=== PATIENT | female | born 1960 | race Caucasian/White ===

== ENCOUNTER → 2017-07-01 | Outpatient (CLI) | payer OTHER ==
[~2017-07-01] MED LIST: ISOVUE-370 76% 100ML VIAL (Q9967) As Ordered
== END ==
LOC: M RAD 10:20
DX: D35.02 Benign neoplasm of left adrenal gland (principal)
CPT/HCPCS: Q9967

== ENCOUNTER → 2017-10-07 | Outpatient (CLI) | payer OTHER | LOC: M LRY 12:27 | DX: R10.12 Left upper quadrant pain (principal) | CPT/HCPCS: 74018; 81002 ==

== ENCOUNTER → 2018-04-14 | Outpatient (CLI) | payer OTHER ==
--- NOTE | 2018-04-14 11:32 | REP ---
Right foot four views: There are calcaneal plantar and Achilles spurs. Mineralization and joint spaces are normal. There is no fracture or dislocation. There are no calcifications or foreign bodies. Impression: Calcaneal plantar and Achilles spurs. Electronically Signed by Melecio Solano MD 04/14/2018 11:24 A
== END ==
LOC: M LRY 10:54
PROVIDERS: ATTEND Physician Assistant
DX: M79.671 Pain in right foot (principal); M77.31 Calcaneal spur, right foot

== ENCOUNTER → 2018-09-13 | Outpatient (CLI) | payer OTHER ==
[~2018-09-13] MED LIST changes: -ISOVUE-370 76% 100ML VIAL (Q9967) As Ordered; +ISOVUE-370 76% 100ML VIAL (Q9967) As Ordered ONE
--- NOTE | 2018-09-13 12:49 | REP ---
CT of the abdomen, pelvis not included, without and with IV contrast for follow-up of adrenal nodule: Comparison is 07/01/2017. The patient has a known 2.5 cm left adrenal nodule. On the study today the adrenal nodule is again identified and measures 2.5 cm. Without IV contrast the CT density of the nodule is -1.88 HU. This is compatible with benign adenoma and is unchanged from the prior study. Left adrenal is unchanged and unremarkable. The visualized lower lung vasques are unremarkable. The hepatic parenchyma is homogeneous. There are surgical clips in the gallbladder fossa. The pancreas, spleen, kidneys and abdominal aorta are unremarkable. The visualized bowel loops and mesentery are unremarkable. Impression: The known left adrenal nodule demonstrates no size increase. The CT density of the adrenal nodules compatible with benign adenoma. Findings are unchanged from the prior study. Electronically Signed by Melecio Solano MD 09/13/2018 12:40 P
== END ==
LOC: M RAD 09:37
PROVIDERS: ATTEND Nurse Practitioner Women's Health
DX: D35.02 Benign neoplasm of left adrenal gland (principal)

== ENCOUNTER → 2019-11-07 | Outpatient (CLI) | payer OTHER ==
[~2019-11-07] MED LIST changes: -ISOVUE-370 76% 100ML VIAL (Q9967) As Ordered ONE; +ISOVUE-370 76% 100ML VIAL As Ordered ONE
--- NOTE | 2019-11-28 07:08 | REP ---
PRE- AND POSTCONTRAST CT ABDOMEN CLINICAL: Follow-up adrenal lesion. COMPARISON: 09/13/2018, 07/01/2017. TECHNIQUE: Axial precontrast, contrast enhanced, and 15-minute delayed images of the abdomen obtained using 100 mL Isovue-370 intravenous contrast material with coronal and sagittal reformation. FINDINGS: A 2.4 cm left adrenal lesion demonstrates low density on precontrast images, as well as satisfactory washout on delayed imaging, consistent with stable benign adrenal adenoma unchanged in size and measuring 2.4 cm in maximal diameter. Liver demonstrates diffuse fatty infiltration without focal hepatic lesion. Spleen, pancreas, right adrenal gland, and bilateral kidneys are normal. Evidence for prior cholecystectomy. The enteric system is without obstruction. Diverticulosis noted without acute diverticulitis. No ascites. No free air. No adenopathy. Abdominal aorta demonstrates atherosclerotic changes without aneurysm. Surrounding musculoskeletal structures are intact. Lung bases are clear. IMPRESSION: * Stable left adrenal benign adenoma. No change through 2018. * Hepatosteatosis. * Diverticulosis without acute diverticulitis. MTDD
== END ==
LOC: M RAD 10:25
PROVIDERS: ATTEND Nurse Practitioner Women's Health
DX: D35.02 Benign neoplasm of left adrenal gland (principal); K76.0 Fatty (change of) liver, not elsewhere classified; K57.92 Diverticulitis of intestine, part unspecified, without perforation or abscess without bleeding
CPT/HCPCS: 74170; Q9967

== ENCOUNTER → 2020-01-08 | Outpatient (CLI) | payer OTHER ==
--- NOTE | 2020-01-08 11:18 | PFTRPT ---
Height: 65.00 Inches Weight: 233.00 Lbs BSA: 2.11 Diagnosis: GAINES DATE: 01/08/2020 ORDERING PHYSICIAN: Dr. Hussain Mccall Pre and post bronchodilator studies have excellent technical quality. Forced vital capacity is reduced. FEV1 is out of proportion, obstructive index is therefore reduced. Expiratory limit within the flow-volume loop is consistent with flow rate limitation. No significant bronchodilator response is identified. Total lung capacity is normal. Residual volume is consistent with air trapping. Diffusing capacity although reduced is appropriate for alveolar volume but no hemoglobin is available for correction. Airway resistance and conductance are normal. IMPRESSION: At least mild obstructive ventilatory impairment with underlying air trapping. No bronchodilator response. Please correlate clinically. MTDD
--- NOTE | 2020-01-09 08:31 | REP ---
INDICATION: PT W/ 40+ PPY SMOKING HISTORY PT HAS PFT AFTER CT COMPARISON: None. TECHNIQUE: Axial noncontrast images from the thoracic inlet to the upper abdomen using low-dose lung screening technique (LDCT). FINDINGS: There is an 8 mm part solid nodule in the lingula (image 61). No further consolidation, suspicious nodule or mass lesion identified. IMPRESSION: Lung-RADS category 3 with 8 mm part solid nodule at the lingula. Management recommendations include 6 month low-dose CT re-evaluation. <Electronically signed by Akin Alston > 01/09/20 [id number]
== END ==
LOC: M CARPUL 09:58
PROVIDERS: ATTEND Emergency Medicine
DX: Z13.89 Encounter for screening for other disorder (principal); R06.02 Shortness of breath; Z87.891 Personal history of nicotine dependence
CPT/HCPCS: 94060; 94726; 94729; G0297

== ENCOUNTER → 2020-09-04 | Outpatient (CLI) | payer OTHER ==
--- NOTE | 2020-09-04 10:52 | REP ---
INDICATION: LUNG NODULE F/U. COMPARISON: 01/08/2020 a low-dose screening CT examination. TECHNIQUE: Axial noncontrast images from the thoracic inlet to the upper abdomen using low-dose lung screening technique (LDCT). As per the protocol only lung window images were sent to the read station for interpretation. FINDINGS: The 8 mm sized ground-glass nodule seen previously in the lingula is stable. No new abnormal nodules, masses, or opacities have developed. Grossly, the mediastinum and pulmonary hussain are stable. Grossly, the imaged upper abdomen and imaged osseous structures are stable. IMPRESSION: Stable CT examination of the chest as described above. According to the revised Fleischner society criteria the lingular nodule represents a category [address] screening is recommended. <Electronically signed by Roland Marquez > 09/04/20 1043
== END ==
LOC: M RAD 09:48
PROVIDERS: ATTEND Student in an Organized Health Care Education/Training Program
DX: R91.1 Solitary pulmonary nodule (principal)

== ENCOUNTER → 2020-10-07 | Outpatient (REF) | payer OTHER ==
[2020-10-09 15:08] LABS: A1A FOR PHENOTYPE 167 mg/dL (101-187)
== END ==
LOC: M LAB REF 13:21
PROVIDERS: ATTEND Internal Medicine Pulmonary Disease
DX: J43.1 Panlobular emphysema (principal)

== ENCOUNTER → 2021-09-10 | Outpatient (CLI) | payer OTHER | LOC: M PLAIMG 13:02 | PROVIDERS: ATTEND Internal Medicine Pulmonary Disease | DX: R91.8 Other nonspecific abnormal finding of lung field (principal) ==

== ENCOUNTER → 2022-04-10 | Outpatient (CLI) | payer OTHER | LOC: M RAD 08:38 | PROVIDERS: ATTEND Nurse Practitioner Women's Health | DX: D35.02 Benign neoplasm of left adrenal gland (principal) ==

== ENCOUNTER → 2022-09-24 | Outpatient (CLI) | payer OTHER | LOC: M RAD 12:55 | PROVIDERS: ATTEND Internal Medicine Pulmonary Disease | DX: R91.8 Other nonspecific abnormal finding of lung field (principal) ==

== ENCOUNTER 2023-07-02 07:49 | Day surgery (SDC) | payer OTHER ==
[~2023-07-02] VITALS: Ht 165.1 cm; Wt 100.2 kg
[~2023-07-02 07:49] MED LIST changes: +ATOR40TA75 PO; +BENA25CA4 PO; +BYDU2INJ7 SC; +CALC-356 PO; +COMB0.2S OU; -ISOVUE-370 76% 100ML VIAL As Ordered ONE; +JARD1TAB PO; +LISI10TA22 PO; +METO1TAB7 PO; +OMEG10002 PO; +OMEP-173 PO; +PROB250C PO; +SPIR1AER PO; +THERTAB52 PO; +XALA0.007 OU; +XARE20TA PO
[2023-07-02] MEDS: NS 1,000 ML IV ONE (08:17)
[2023-07-02] MEDS ORDERED: LIDOCAINE 2% 100MG/5ML SDV (FOR ANES.) As Ordered ONE (09:05)
[2023-07-02] MEDS ORDERED: propofoL 200 MG/20 ML VIAL As Ordered ONE (09:05)
[2023-07-02 10:10] VITALS: BP 138/66; TEMP 97.2; O2SAT 100
== END 2023-07-02 10:50 | disposition home or self-care (01) ==
LOC: M OPP 07:49
PROVIDERS: ATTEND Internal Medicine Gastroenterology
DX: Z12.11 Encounter for screening for malignant neoplasm of colon (principal); Z12.12 Encounter for screening for malignant neoplasm of rectum; D12.3 Benign neoplasm of transverse colon; D12.4 Benign neoplasm of descending colon; D12.2 Benign neoplasm of ascending colon; D12.7 Benign neoplasm of rectosigmoid junction; K57.30 Diverticulosis of large intestine without perforation or abscess without bleeding; K44.9 Diaphragmatic hernia without obstruction or gangrene; K29.70 Gastritis, unspecified, without bleeding; K21.00 Gastro-esophageal reflux disease with esophagitis, without bleeding; R13.10 Dysphagia, unspecified; E11.9 Type 2 diabetes mellitus without complications; J44.9 Chronic obstructive pulmonary disease, unspecified; Z95.0 Presence of cardiac pacemaker; F17.210 Nicotine dependence, cigarettes, uncomplicated; Z79.899 Other long term (current) drug therapy; Z79.01 Long term (current) use of anticoagulants; Z79.84 Long term (current) use of oral hypoglycemic drugs; Z90.710 Acquired absence of both cervix and uterus

== ENCOUNTER → 2024-01-11 | Outpatient (CLI) | payer OTHER | LOC: M RAD 13:35 | PROVIDERS: ATTEND Internal Medicine Pulmonary Disease | DX: Z12.2 Encounter for screening for malignant neoplasm of respiratory organs (principal); Z87.891 Personal history of nicotine dependence ==

== ENCOUNTER 2024-04-12 06:21 | Day surgery (SDC) | payer OTHER ==
[~2024-04-12] VITALS: Ht 165.1 cm; Wt 98.2 kg
[~2024-04-12 06:21] MED LIST changes: +ATOR80TA59 PO; +JARD1TAB3 PO; +PHENYLEPHRINE 10% OPHTH SOL 5ML OS PRN
[2024-04-12] MEDS ORDERED: MIDAZOLAM INJ 2MG/2ML VIAL As Ordered ONE (07:09)
[2024-04-12] MEDS: LIDOCAINE 3.5 % 1ML OPHTH TOPICAL GEL OU ONE (07:09)
[2024-04-12] MEDS: OFLOXACIN 0.3 % (OCUFLOX) OPTH SOL 5ML OS ONE (07:09)
[2024-04-12] MEDS: CYCLOPENTOLATE 1% OPHTH SOLN 2ML BTL OS SCH (07:09)
[2024-04-12] MEDS: PHENYLEPHRINE 2.5% OPHTH SOL 2ML OS SCH (07:10)
[2024-04-12] MEDS: TROPICAMIDE 1% OPHTH SOLN 15ML OS SCH (07:10)
[2024-04-12] MEDS: BSS IRRIG/VANCO(10MG)/TOBRA(5MG)/EPINEPH(1:1000-0.5CC)500ML BAG-ORONLY As Ordered ONE (08:47)
[2024-04-12] MEDS: LIDOCAINE 1% SDV 5ML VIAL As Ordered ONE (08:47)
[2024-04-12] MEDS: CEFUROXIME 1MG/0.1ML INTRACAMERAL INJ As Ordered ONE (08:47)
[2024-04-12] MEDS ORDERED: fentaNYL 100 MCG/2 ML INJECTION As Ordered ONE (08:54)
[2024-04-12 09:02] VITALS: BP 122/65; TEMP 97.6; O2SAT 98
== END 2024-04-12 09:50 | disposition home or self-care (01) ==
LOC: M SDC 06:21
PROVIDERS: ATTEND Ophthalmology
DX: H40.1121 Primary open-angle glaucoma, left eye, mild stage (principal); E11.36 Type 2 diabetes mellitus with diabetic cataract; H25.12 Age-related nuclear cataract, left eye; I48.91 Unspecified atrial fibrillation; I10 Essential (primary) hypertension; J44.9 Chronic obstructive pulmonary disease, unspecified; E78.00 Pure hypercholesterolemia, unspecified; Z95.0 Presence of cardiac pacemaker; Z79.899 Other long term (current) drug therapy; Z79.01 Long term (current) use of anticoagulants; Z79.84 Long term (current) use of oral hypoglycemic drugs; K21.9 Gastro-esophageal reflux disease without esophagitis; Z90.710 Acquired absence of both cervix and uterus; Z90.49 Acquired absence of other specified parts of digestive tract; Z87.891 Personal history of nicotine dependence
CPT/HCPCS: 66991; C1783; J0697; J2250; J3010; V2632

== ENCOUNTER 2024-04-19 06:26 | Day surgery (SDC) | payer OTHER ==
[~2024-04-19] VITALS: Ht 165.1 cm; Wt 98.4 kg
[~2024-04-19 06:26] MED LIST changes: +PHENYLEPHRINE 10% OPHTH SOL 5ML OD PRN; -PHENYLEPHRINE 10% OPHTH SOL 5ML OS PRN
[2024-04-19] MEDS: PHENYLEPHRINE 2.5% OPHTH SOL 2ML OD SCH (06:58)
[2024-04-19] MEDS: CYCLOPENTOLATE 1% OPHTH SOLN 2ML BTL OD SCH (06:58)
[2024-04-19] MEDS: OFLOXACIN 0.3 % (OCUFLOX) OPTH SOL 5ML OD ONE (06:58)
[2024-04-19] MEDS: LIDOCAINE 3.5 % 1ML OPHTH TOPICAL GEL OU ONE (06:58)
[2024-04-19] MEDS: TROPICAMIDE 1% OPHTH SOLN 15ML OD SCH (06:59)
[2024-04-19] MEDS ORDERED: MIDAZOLAM INJ 2MG/2ML VIAL As Ordered ONE (07:17)
[2024-04-19] MEDS ORDERED: fentaNYL 100 MCG/2 ML INJECTION As Ordered ONE (07:17)
[2024-04-19] MEDS: LIDOCAINE 1% SDV 5ML VIAL As Ordered ONE (08:05)
[2024-04-19] MEDS: CEFUROXIME 1MG/0.1ML INTRACAMERAL INJ As Ordered ONE (08:05)
[2024-04-19] MEDS: BSS IRRIG/VANCO(10MG)/TOBRA(5MG)/EPINEPH(1:1000-0.5CC)500ML BAG-ORONLY As Ordered ONE (08:05)
[2024-04-19] MEDS ORDERED: PROVISC 10 MG/ML 0.85ML SYRINGE As Ordered ONE (08:08)
[2024-04-19] MEDS ORDERED: dexmedeTOMIDine (4MCG/ML)200MCG/50ML BTL (PRECEDEX) As Ordered ONE (08:13)
[2024-04-19 08:24] VITALS: BP 179/94; TEMP 97.6; O2SAT 95
== END 2024-04-19 08:42 | disposition home or self-care (01) ==
LOC: M SDC 06:26
PROVIDERS: ATTEND Ophthalmology
DX: H25.11 Age-related nuclear cataract, right eye (principal); H40.1111 Primary open-angle glaucoma, right eye, mild stage; I48.91 Unspecified atrial fibrillation; I10 Essential (primary) hypertension; E78.5 Hyperlipidemia, unspecified; Z95.0 Presence of cardiac pacemaker; E11.9 Type 2 diabetes mellitus without complications; K21.9 Gastro-esophageal reflux disease without esophagitis; J44.9 Chronic obstructive pulmonary disease, unspecified; Z79.899 Other long term (current) drug therapy; Z79.01 Long term (current) use of anticoagulants
CPT/HCPCS: 66991; A4649; C1783; J0697; J2250; J3010; V2632

== ENCOUNTER → 2025-02-16 | Outpatient (CLI) | payer OTHER ==
[~2025-02-16] MED LIST changes: -BYDU2INJ7 SC; +EXEN2AUT SC; -PHENYLEPHRINE 10% OPHTH SOL 5ML OD PRN
== END ==
LOC: M RAD 12:31
PROVIDERS: ATTEND Physician Assistant
DX: Z12.2 Encounter for screening for malignant neoplasm of respiratory organs (principal); F17.218 Nicotine dependence, cigarettes, with other nicotine-induced disorders; R91.8 Other nonspecific abnormal finding of lung field; I25.10 Atherosclerotic heart disease of native coronary artery without angina pectoris